=== PATIENT | male | born 1940 | race Caucasian/White ===

== ENCOUNTER 2018-12-02 14:06 | Inpatient (IN) | payer OTHER ==
[2018-12-02] MEDS ORDERED: ENALAPRIL MALEATE 20 MG TAB PO ONE (14:20)
[2018-12-02] MEDS ORDERED: ASPIRIN 81 MG CHEWABLE TAB PO ONE (14:20)
[2018-12-02] MEDS ORDERED: NS 1,000 ML IV ONE (14:20)
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
--- NOTE | 2018-12-02 15:31 | CPEKG ---
Test Reason : OPEN Blood Pressure : / mmHG Vent. Rate : 075 BPM Atrial Rate : 075 BPM P-R Int : 151 ms QRS Dur : 086 ms QT Int : 395 ms P-R-T Axes : 047 -32 036 degrees QTc Int : 442 ms Sinus rhythm Left ventricular hypertrophy Inferior infarct, old Confirmed by Israel Tan ([id number]) on 12/02/2018 3:31:19 PM Referred By: ISRAEL TAN Confirmed By:Israel Tan
[2018-12-02 15:46] LABS: PLATELET COUNT 237 10^3/uL (150-400)
[2018-12-02] MEDS ORDERED: OLANZapine 5 MG TAB PO ONE (21:23)
[2018-12-02] MEDS ORDERED: OLANZapine 10 MG/2 ML VIAL ONE (21:45)
[2018-12-02] MEDS ORDERED: OLANZapine 10 MG/2 ML VIAL IM ONE (21:50)
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
--- NOTE | 2018-12-02 22:50 | ASMTTCLDSP ---
T[facility] Discharge Disposition Disposition: Answers: Admit Discharge Concerns/Recommendations: Notes: In consultation with [facility] ED physician, Malathi Hartley MD and [facility] on-call psychiatrist, Dustin Terrazas MD, both concurred that patient appears to meet 27-65 criteria requiring psychiatric hospitalization as the patient appears to be gravely disabled due to a mental illness condition. The patient was given the [facility] prohibited belongings list while in the ED. Was patient given the Answers: Yes Inpatient Behavioral Health Prohibited Belongings List while in the ED? For inpatient Dustin Terrazas MD admission, the following psychiatrist agreed to accept patient for admission to [facility]): Type of Hold: Answers: M1/72-hour Hold Hold initiated by: Answers: ED Physician Date Signed: 12/02/2018 10:50 PM Electronically Signed By:Yoon Cota
[2018-12-03] MEDS ORDERED: MAGNESIUM HYDROXIDE 30 ML UDCUP PO PRN (00:47)
[2018-12-03] MEDS ORDERED: MAG HYDROX/AL HYDROX/SIMETH 30 ML UDCUP PO PRN (00:47)
[2018-12-03] MEDS ORDERED: OLANZapine 5 MG TAB PO PRN (00:48)
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
--- NOTE | 2018-12-03 13:25 | ASMTCMCOM ---
JOSE Note JOSE Note Notes: Pt's sister Lety Salgado called 2x and left messages with concern for her brother's well being. No SARAH on file. CM advised [facility] unit to inform the pt. of his sister's concerns. Date Signed: 12/03/2018 01:24 PM Electronically Signed By:Radha Rios LCSW
--- NOTE | 2018-12-03 13:31 | PDMN ---
Medical Necessity Medical necessity: Pt meets IP criteria per [facility] Behavioral Health; est los >2 mn for adjustment disorder w/mixed disturbance of emotions & conduct ; pt on M1 hold due to being gravely disabled; admit for further monitoring, safety, crisis stabilization & med management; per H&P & order 12/03/18
[2018-12-03] MEDS ORDERED: ENALAPRIL MALEATE 20 MG TAB PO ONE (14:20)
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
[2018-12-03] MEDS: ATORVASTATIN CALCIUM 40 MG TAB PO SCH (20:37)
--- NOTE | 2018-12-04 06:25 | SOAPPROG ---
SOAP Progress Note Assessment/Plan: Assessment: Adjustment Disorder. Improvement noted. (see subjective/objective note). Patient could benefit from continued inpatient hospitalization for crisis stabilization, safety, and medication evaluation. Consider discharge tomorrow. Plan: 1. Medications: no changes at this time 2. Review with patient informed consent and recommendations for psychotropic medication treatment listed below 3. Labs: no additional labs at this time 4. Therapy: continue milieu and group therapy 5. Further investigation including gathering information from patients relatives and review of past case records to inform treatment plan. 6. Safety/Wellness plan and follow-up outpatient appointments to be established prior to discharge. Next steps are for patient to meet with health care administrator to plan a safe discharge plan and establish outpatient services for ongoing treatment. 7. Confer with inpatient treatment team regarding treatment plan. 8. Psychosocial stressors addressed through assistant case manager. 9. Legal status: M1 10. Consider discharge on if patient is in stable condition, safe, and has a safe discharge plan. 11. Substance abuse interventions: Nicotine PSYCHOTROPIC MEDICATION TREATMENT INFORMED CONSENT and RECOMMENDATIONS: Review nature of condition, diagnosis, and prognosis. Review nature and purpose of psychotropic medication treatment. Review type of psychotropic medications being ordered. Review risk and benefits of psychotropic medication treatment. Review probable length of time patient will need to take medications. Review risk and benefits of not undergoing psychotropic medication treatment. Review alternative treatments to psychotropic medications. Review psychotropic medications contraindications, drug-drug interactions, side effects, and importance of reporting any side effects to a psychiatric provider or nurse during inpatient hospitalization, and upon discharge to patients psychiatric outpatient provider, primary care provider, or other health career development manager. Review importance of asking a nurse, psychiatric provider, or primary care provider any questions or problems concerning the psychotropic medications. Verify patient understands the information that has been provided, and understands, accepts, and agrees to psychotropic medications. Review patients safety plan and importance of patient to report to staff while hospitalized if patient is ever a danger to self/others, or unable to care for self, and upon discharge, the importance for patient to contact [facility] or [facility], or go to the nearest emergency room, if patient is ever a danger to self/others, or unable to care for self. Recommend that upon discharge patient establish medication management treatment with a psychiatric provider, establishes routine therapy appointments, and follow-up with primary care provider. Verify patient understands and agrees to these recommendations. 12/04/18 06:24 Subjective: Following up with patient for evaluation of mood and safety. Patient reports, "Doing well, probably got more sleep in the last two days than I have all last week." Patient expresses the following psychiatric symptoms none. Patient describes getting 6 hours of sleep. Patient reports plan to contact his business continuity strategy director, and rent a car to travel back to his home in [place], [place]. Objective: Vital Signs Temp Pulse Resp BP Pulse Ox 36.6 C 65 16 102/54 L 93 12/03/18 06:38 12/03/18 06:38 12/03/18 06:38 12/03/18 06:38 12/03/18 06:38 NURSING REPORT: Consulted with nursing for update on patients progress in treatment. Nurses report patient is engaged in treatment, is attending groups, slept 6 hours, expresses the following psychiatric symptoms: none, exhibits the following psychiatric symptoms: none, is eating all meals, and denies SI/HI, denies A/V hallucinations, and denies delusions. MSE: The patient presents casually dressed and with good hygiene, and looks stated age. Patient is sitting, posture is upright, and position is relaxed. Patient appears awake, alert, and responds appropriately and reasonably during interview. Patient is engaged, relates well to interviewer, and emotional facial expression is appropriate to situation and changes appropriately with topic. Patient is cooperative, makes comfortable eye contact, and movements are voluntary, deliberate, coordinated, and smooth and even with no inappropriate movements. Patient makes laryngeal sounds effortlessly and shares conversation appropriately; pace of conversation is appropriate, and stream of talking is fluent; articulation is clear and understandable; word choice is effortless and appropriate for education level; completes sentences, occasionally pausing to think; rate and volume are appropriate for interview and setting. Patient reports mood as euthymic. Patients affect is stable with full variable range, congruent with mood, and appropriate to speech and circumstances. Patient has linear and logical thinking, with no loose associations, tangential thought, thought blocking, concrete thinking, or any other signs of formal thought disorder. Patient denies suicidal and homicidal ideation, and denies hallucinations and delusions. Patient appears to be a reliable historian with sound judgement and good insight into current condition. Patient has no apparent dysfunction in recent or remote memory noted , and no evidence of gross cognitive dysfunction noted at any point during the interview. SUBSTANCE ABUSE BRIEF INTERVENTION: Brief intervention regarding the risks of nicotine abuse is provided to patient with goal to reduce the risk of harm that could result from the continued use of nicotine, with the general aim to investigate the problem, raise awareness of problem, develop a solution with the patient, recommend a specific change or activity, and motivate the patient toward change. Assess substance abuse behavior and give supportive advice about harm reduction, recommend a reduction in hazardous/at-risk consumption patterns, and facilitate referrals for additional specialized treatment with nonfarm animal caretaker. Intermediate goal is for the patient to quit and continue outpatient treatment. Intervention focus on intermediate goals to allow for more immediate success in the treatment process to keep the patient motivated. Review following with patient: Nicotine dependence: lung cancer, other cancers, heart and circulatory system problems, diabetes, eye problems, infertility and impotence, more prone to respiratory infections, weakened senses, teeth and gum disease, premature aging, second hand smoke. Withdrawal symptoms include strong cravings, anxiety, irritability, restlessness, difficulty concentrating, depressed mood, frustration, anger, increased hunger, insomnia, and constipation or diarrhea. OUTPATIENT SUBSTANCE ABUSE TREATMENT: Patient referred to outpatient provider and treatment for continued treatment related to substance abuse. - Time Spent With Patient Time Spent With Patient: 15 minutes, met with patient individually. - Pending Discharge Pending Discharge Within 24 Hours: No Pending Discharge Within 48 Hours: No ICD10 Worksheet Patient Problems: Problems Problem Status Onset Adjustment disorder with mixed disturbance of emotions and conduct Acute Nicotine dependence Acute
[2018-12-04] MEDS: ENALAPRIL MALEATE 5 MG TAB PO SCH (08:28)
[2018-12-04] MEDS: ASPIRIN EC 325 MG TAB PO SCH (08:28)
[2018-12-04] MEDS ORDERED: ATORVASTATIN CALCIUM 40 MG TAB PO SCH (09:00)
[2018-12-04] MEDS: ATORVASTATIN CALCIUM 40 MG TAB PO SCH (19:56)
--- NOTE | 2018-12-05 06:50 | SOAPPROG ---
SOAP Progress Note Assessment/Plan: Assessment: Adjustment Disorder. Improvement noted. (see subjective/objective note). Patient could benefit from continued inpatient hospitalization for crisis stabilization, safety, and medication evaluation. Consider discharge when patient has safe discharge plan in place. Patients current support system has inability to manage functional impairment at lower level of care. Establish support with safe discharge plan prior to patient discharging. Plan: 1. Medications: no changes at this time 2. Review with patient informed consent and recommendations for psychotropic medication treatment listed below 3. Labs: no additional labs at this time 4. Therapy: continue milieu and group therapy 5. Further investigation including gathering information from patients relatives and review of past case records to inform treatment plan. 6. Safety/Wellness plan and follow-up outpatient appointments to be established prior to discharge. Next steps are for patient to meet with acute care assistant to plan a safe discharge plan and establish outpatient services for ongoing treatment. 7. Confer with inpatient treatment team regarding treatment plan. 8. Psychosocial stressors addressed through pillowcase cleaner. 9. Legal status: M1. Patient agrees to voluntary hospitalization. 10. Consider discharge when patient is in stable condition, safe, and has a safe discharge plan. 11. Substance abuse interventions: Nicotine PSYCHOTROPIC MEDICATION TREATMENT INFORMED CONSENT and RECOMMENDATIONS: Review nature of condition, diagnosis, and prognosis. Review nature and purpose of psychotropic medication treatment. Review type of psychotropic medications being ordered. Review risk and benefits of psychotropic medication treatment. Review probable length of time patient will need to take medications. Review risk and benefits of not undergoing psychotropic medication treatment. Review alternative treatments to psychotropic medications. Review psychotropic medications contraindications, drug-drug interactions, side effects, and importance of reporting any side effects to a psychiatric provider or nurse during inpatient hospitalization, and upon discharge to patients psychiatric outpatient provider, primary care provider, or other health urgent care. Review importance of asking a nurse, psychiatric provider, or primary care provider any questions or problems concerning the psychotropic medications. Verify patient understands the information that has been provided, and understands, accepts, and agrees to psychotropic medications. Review patients safety plan and importance of patient to report to staff while hospitalized if patient is ever a danger to self/others, or unable to care for self, and upon discharge, the importance for patient to contact [facility] or [facility], or go to the nearest emergency room, if patient is ever a danger to self/others, or unable to care for self. Recommend that upon discharge patient establish medication management treatment with a psychiatric provider, establishes routine therapy appointments, and follow-up with primary care provider. Verify patient understands and agrees to these recommendations. 12/05/18 06:50 Subjective: Following up with patient for evaluation of mood and safety. Patient reports, "Doing okay, just concerned about my safety when I leave here. My plan is to return home, but first I would like to pick out hand my belongings that are in several places. I don't think I could survive at the homeless group home." Patient expresses the following psychiatric symptoms none. Patient describes getting 6 hours of sleep. Patient reports plan to rent a car to travel back to his home in [place], [place]. Patient agrees for this INCLUSION TEACHER to contact his sister, Lety, to discuss patients discharge plan and to get Lety's input as to whether patients discharge plan is safe. Patient agrees to sign SARAH for this INCLUSION TEACHER to contact his sister. Objective: Vital Signs Temp Pulse Resp BP Pulse Ox 36.9 C 76 16 155/75 H 92 12/04/18 06:00 12/04/18 06:00 12/04/18 06:00 12/04/18 06:00 12/04/18 06:00 NURSING REPORT: Consulted with nursing for update on patients progress in treatment. Nurses report patient is engaged in treatment, is attending groups, slept 6 hours, expresses the following psychiatric symptoms: moderate anxiety, exhibits the following psychiatric symptoms: moderate anxiety, patient appears to be irritable at times; is eating all meals, and denies SI/HI, denies A/V hallucinations, and denies delusions. MSE: The patient presents casually dressed and with good hygiene, and looks stated age. Patient is sitting, posture is upright, and position is relaxed. Patient appears awake, alert, and responds appropriately and reasonably during interview. Patient is engaged, relates well to interviewer, and emotional facial expression is appropriate to situation and changes appropriately with topic. Patient is cooperative, makes comfortable eye contact, and movements are voluntary, deliberate, coordinated, and smooth and even with no inappropriate movements. Patient makes laryngeal sounds effortlessly and shares conversation appropriately; pace of conversation is appropriate, and stream of talking is fluent; articulation is clear and understandable; word choice is effortless and appropriate for education level; completes sentences, occasionally pausing to think; rate and volume are appropriate for interview and setting. Patient reports mood as euthymic. Patients affect is stable with full variable range, congruent with mood, and appropriate to speech and circumstances. Patient has linear and logical thinking, with no loose associations, tangential thought, thought blocking, concrete thinking, or any other signs of formal thought disorder. Patient denies suicidal and homicidal ideation, and denies hallucinations and delusions. Patient appears to be a reliable historian with sound judgement and good insight into current condition. Patient has no apparent dysfunction in recent or remote memory noted , and no evidence of gross cognitive dysfunction noted at any point during the interview. SUBSTANCE ABUSE BRIEF INTERVENTION: Brief intervention regarding the risks of nicotine abuse is provided to patient with goal to reduce the risk of harm that could result from the continued use of nicotine, with the general aim to investigate the problem, raise awareness of problem, develop a solution with the patient, recommend a specific change or activity, and motivate the patient toward change. Assess substance abuse behavior and give supportive advice about harm reduction, recommend a reduction in hazardous/at-risk consumption patterns, and facilitate referrals for additional specialized treatment with director critical care. Intermediate goal is for the patient to quit and continue outpatient treatment. Intervention focus on intermediate goals to allow for more immediate success in the treatment process to keep the patient motivated. Review following with patient: Nicotine dependence: lung cancer, other cancers, heart and circulatory system problems, diabetes, eye problems, infertility and impotence, more prone to respiratory infections, weakened senses, teeth and gum disease, premature aging, second hand smoke. Withdrawal symptoms include strong cravings, anxiety, irritability, restlessness, difficulty concentrating, depressed mood, frustration, anger, increased hunger, insomnia, and constipation or diarrhea. OUTPATIENT SUBSTANCE ABUSE TREATMENT: Patient referred to outpatient provider and treatment for continued treatment related to substance abuse. - Time Spent With Patient Time Spent With Patient: 15 minutes, met with patient individually. - Pending Discharge Pending Discharge Within 24 Hours: No Pending Discharge Within 48 Hours: No ICD10 Worksheet Patient Problems: Problems Problem Status Onset Adjustment disorder with mixed disturbance of emotions and conduct Acute Nicotine dependence Acute
[2018-12-05] MEDS: ENALAPRIL MALEATE 5 MG TAB PO SCH (08:43)
[2018-12-05] MEDS: ASPIRIN EC 325 MG TAB PO SCH (08:43)
--- NOTE | 2018-12-05 12:05 | ASMTCMCOM ---
CM Note CM Note Notes: CC checked in with ct. who was pleasant and cooperative. Ct. plans to return to [place] upon discharge. He plans to rent a car and drive it back home. Ct. reported that he would have funds deposited to his account next . 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 Discussed follow up [facility] but ct. was not sure he is interested in that. Date Signed: 12/05/2018 12:04 PM Electronically Signed By:Madelyn Parish
--- NOTE | 2018-12-05 18:49 | ASMTCMCOM ---
CM Note CM Note Notes: The information recorded in this note occurred on 12/04/18. 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 Date Signed: 12/05/2018 06:49 PM Electronically Signed By:Yoon Cota
[2018-12-05] MEDS: ATORVASTATIN CALCIUM 40 MG TAB PO SCH (20:36)
--- NOTE | 2018-12-06 06:13 | SOAPPROG ---
SOAP Progress Note Assessment/Plan: Assessment: Adjustment Disorder. Improvement noted. (see subjective/objective note). Patient could benefit from continued inpatient hospitalization for crisis stabilization, safety, and medication evaluation. Consider discharge when patient has safe discharge plan in place. Patients current support system has inability to manage functional impairment at lower level of care. Establish support with safe discharge plan prior to patient discharging. Plan: 1. Medications: no changes at this time 2. Review with patient informed consent and recommendations for psychotropic medication treatment listed below 3. Labs: no additional labs at this time 4. Therapy: continue milieu and group therapy 5. Further investigation including gathering information from patients relatives and review of past case records to inform treatment plan. 6. Safety/Wellness plan and follow-up outpatient appointments to be established prior to discharge. Next steps are for patient to meet with medicare biller to plan a safe discharge plan and establish outpatient services for ongoing treatment. 7. Confer with inpatient treatment team regarding treatment plan. 8. Psychosocial stressors addressed through case fitter. 9. Legal status: M1. Patient agrees to voluntary hospitalization. 10. Consider discharge when patient is in stable condition, safe, and has a safe discharge plan. 11. Substance abuse interventions: Nicotine PSYCHOTROPIC MEDICATION TREATMENT INFORMED CONSENT and RECOMMENDATIONS: Review nature of condition, diagnosis, and prognosis. Review nature and purpose of psychotropic medication treatment. Review type of psychotropic medications being ordered. Review risk and benefits of psychotropic medication treatment. Review probable length of time patient will need to take medications. Review risk and benefits of not undergoing psychotropic medication treatment. Review alternative treatments to psychotropic medications. Review psychotropic medications contraindications, drug-drug interactions, side effects, and importance of reporting any side effects to a psychiatric provider or nurse during inpatient hospitalization, and upon discharge to patients psychiatric outpatient provider, primary care provider, or other health wild animal caretaker. Review importance of asking a nurse, psychiatric provider, or primary care provider any questions or problems concerning the psychotropic medications. Verify patient understands the information that has been provided, and understands, accepts, and agrees to psychotropic medications. Review patients safety plan and importance of patient to report to staff while hospitalized if patient is ever a danger to self/others, or unable to care for self, and upon discharge, the importance for patient to contact [facility] or 1, or go to the nearest emergency room, if patient is ever a danger to self/others, or unable to care for self. Recommend that upon discharge patient establish medication management treatment with a psychiatric provider, establishes routine therapy appointments, and follow-up with primary care provider. Verify patient understands and agrees to these recommendations. 12/06/18 06:12 Subjective: Following up with patient for evaluation of mood and safety. Patient reports, "I am doing fine. I need to get my belongings back from the homeless skilled nursing. My belongings were left in locker #[id number]. This is [employer] locker." Patient expresses the following psychiatric symptoms none. Patient describes getting 6 hours of sleep. Patient reports plan to rent a car to travel back to his home in [place], [place]. Objective: Vital Signs Temp Pulse Resp BP Pulse Ox 37.5 C 67 16 167/72 H 95 12/05/18 06:00 12/05/18 06:00 12/05/18 06:00 12/05/18 08:43 12/05/18 06:00 NURSING REPORT: Consulted with nursing for update on patients progress in treatment. Nurses report patient is engaged in treatment, is attending groups, slept 6 hours, expresses the following psychiatric symptoms: moderate anxiety, exhibits the following psychiatric symptoms: moderate anxiety; is eating all meals, and denies SI/HI, denies A/V hallucinations, and denies delusions. MSE: The patient presents casually dressed and with good hygiene, and looks stated age. Patient is sitting, posture is upright, and position is relaxed. Patient appears awake, alert, and responds appropriately and reasonably during interview. Patient is engaged, relates well to interviewer, and emotional facial expression is appropriate to situation and changes appropriately with topic. Patient is cooperative, makes comfortable eye contact, and movements are voluntary, deliberate, coordinated, and smooth and even with no inappropriate movements. Patient makes laryngeal sounds effortlessly and shares conversation appropriately; pace of conversation is appropriate, and stream of talking is fluent; articulation is clear and understandable; word choice is effortless and appropriate for education level; completes sentences, occasionally pausing to think; rate and volume are appropriate for interview and setting. Patient reports mood as euthymic. Patients affect is stable with full variable range, congruent with mood, and appropriate to speech and circumstances. Patient has linear and logical thinking, with no loose associations, tangential thought, thought blocking, concrete thinking, or any other signs of formal thought disorder. Patient denies suicidal and homicidal ideation, and denies hallucinations and delusions. Patient appears to be a reliable historian with sound judgement and good insight into current condition. Patient has no apparent dysfunction in recent or remote memory noted , and no evidence of gross cognitive dysfunction noted at any point during the interview. SUBSTANCE ABUSE BRIEF INTERVENTION: Brief intervention regarding the risks of nicotine abuse is provided to patient with goal to reduce the risk of harm that could result from the continued use of nicotine, with the general aim to investigate the problem, raise awareness of problem, develop a solution with the patient, recommend a specific change or activity, and motivate the patient toward change. Assess substance abuse behavior and give supportive advice about harm reduction, recommend a reduction in hazardous/at-risk consumption patterns, and facilitate referrals for additional specialized treatment with hospice home care coordinator. Intermediate goal is for the patient to quit and continue outpatient treatment. Intervention focus on intermediate goals to allow for more immediate success in the treatment process to keep the patient motivated. Review following with patient: Nicotine dependence: lung cancer, other cancers, heart and circulatory system problems, diabetes, eye problems, infertility and impotence, more prone to respiratory infections, weakened senses, teeth and gum disease, premature aging, second hand smoke. Withdrawal symptoms include strong cravings, anxiety, irritability, restlessness, difficulty concentrating, depressed mood, frustration, anger, increased hunger, insomnia, and constipation or diarrhea. OUTPATIENT SUBSTANCE ABUSE TREATMENT: Patient referred to outpatient provider and treatment for continued treatment related to substance abuse. - Time Spent With Patient Time Spent With Patient: 15 minutes, met with patient individually. - Pending Discharge Pending Discharge Within 24 Hours: No Pending Discharge Within 48 Hours: No ICD10 Worksheet Patient Problems: Problems Problem Status Onset Adjustment disorder with mixed disturbance of emotions and conduct Acute Nicotine dependence Acute
[2018-12-06] MEDS: ASPIRIN EC 325 MG TAB PO SCH (08:20)
[2018-12-06] MEDS: ENALAPRIL MALEATE 5 MG TAB PO SCH (08:20)
[2018-12-06] MEDS: ACETAMINOPHEN 325 MG TAB PO PRN (09:43)
--- NOTE | 2018-12-06 12:07 | ASMTCMCOM ---
CM Note CM Note Notes: Ct. was pleasant and cheerful when CC checked in with him this morning. However, he later requested that his belongings, that he left at the homeless halfway, be brought to the hospital. When CC explained that he will have to retrive them in person after discharge he became angry. Date Signed: 12/06/2018 12:06 PM Electronically Signed By:Madelyn Parish
--- NOTE | 2018-12-06 12:37 | ASMTCMCOM ---
CM Note CM Note Notes: CC spoke with [facility] Trace Allen [phone]. She is going to drop ct. off her commercial insurance and call with an update. Date Signed: 12/06/2018 12:36 PM Electronically Signed By:Madelyn Parish
[2018-12-06] MEDS: ATORVASTATIN CALCIUM 40 MG TAB PO SCH (20:37)
[2018-12-07] MEDS: ENALAPRIL MALEATE 5 MG TAB PO SCH (08:35)
[2018-12-07] MEDS: ASPIRIN EC 325 MG TAB PO SCH (08:36)
--- NOTE | 2018-12-07 15:44 | ASMTCMCOM ---
CM Note CM Note Notes: Pt. reports his day "been very slow". Pt. reports he while sleeping he was "up about 4 times" adding this is his regular schedule and he regularly sleeps 4-5 hours. Pt. reports getting "more than enough" food, adding he has "gained 5lbs". Pt. reports no issues with his current medications. Pt. reports attending one groups this morning and sleeping through the other groups. Pt. reports giving a [place] suit jacket to a peer pt. Pt. stated he wants to go to christianity tomorrow at the [facility]. CC explained how pt. would have to fully discharge to attend [facility] tomorrow. Pt. stated "that doesn't sit well with me". Pt. reports he gets his pay check on Sunday and is discharging Sunday morning, adding he has already rented a car for Sunday. Pt. stated he could walk to his christianity tomorrow. CC explained he would have to fully discharge, as there are no day passes. Pt. stated he will stay but is not happy and that there will be "legal ramifications". Pt. presents as alert, fairly calm, distracted, fair eye contact, irritated at times, and mostly cooperative. Staff report pt. sleeping 2.5 hours and being medication compliant. CC will provided pt. with a Bible Date Signed: 12/07/2018 03:44 PM Electronically Signed By:Anastasia Espinoza
--- NOTE | 2018-12-07 16:50 | SOAPPROG ---
SOAP Progress Note Assessment/Plan: Assessment: 78 yo presented to ED after c/o bout of lightheadedness outside homeless care home. He received cardiac and neuro w/u in ED which was negative. [facility] vocational evaluator thought patient presented with manic sxs and he was placed on M1. Patient was converted to voluntary status while on 3N despite refusing all medications. Plan: 12/07/18 16:41 1. PMHNP's note states patient is refusing all psych meds. His daughter in [place] says patient has h/o bipolar disorder, but refuses all psych treatment. According to collateral information, he has been arrested multiple times in [place] and [place], but never been placed on COM for involuntary medication and psych treatment. 2. Patient presents as irritable, easily frustrated, hostile at times, confrontational with staff. However, he has not been physically aggressive or made any threats toward staff or peers. He is not currently endorsing any thoughts, plans or intent to harm himself or anyone else. Patient has been inappropriate with female staff asking them to come to his "quarters" and share "cranberry cocktails" but no hypersexual behavior noted. 3. Patient says he wants to remain in hospital until he gets his social security check next week. 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 4. Continues on voluntary status. Patient could leave at any time, he is not deemed to be a DTS/DTO or gravely disabled. Subjective: Patient is upset that he can't leave hospital to go to faith service tomorrow and then return to 3N. He wants a place to stay until his social security check arrives next week. He doesn't understand why he can't go to faith and then come right back to [facility]. Even after staff explain that patient does not have to stay in hospital if he doesn't want to sine he is voluntary, he insists he wants to return to hospital until he gets his social security check and can pay for bus ticket back home. He doesn't want to have to stay in homeless care home. 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 However, patient refuses all psych meds. He doesn't have increase in goal-directed activity, reckless or impulsive behavior (he can attend group and participate in milieu therapy), elevated/elated mood, pressured speech. And he denies any SI/HI as well as all psychotic sxs. He does not have paranoid delusions, AH/VH. MD doesn't believe patient is DTS/DTO or gravely disabled. 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
[2018-12-07] MEDS: ATORVASTATIN CALCIUM 40 MG TAB PO SCH (21:53)
[2018-12-07] MEDS: NICOTINE POLACRILEX 2 MG GUM B PRN (23:37)
[2018-12-08] MEDS: ACETAMINOPHEN 325 MG TAB PO PRN (07:24)
[2018-12-08] MEDS: ASPIRIN EC 325 MG TAB PO SCH (07:24)
[2018-12-08] MEDS: ENALAPRIL MALEATE 5 MG TAB PO SCH (07:24)
[2018-12-08] MEDS: NICOTINE POLACRILEX 2 MG GUM B PRN ×3 (08:36→17:56)
--- NOTE | 2018-12-08 15:20 | ASMTBHDC ---
Notes Note: Notes: Pt. reports feeling "good". Pt. stated he slept "same as usual". Pt. reports getting "too much" to eat, adding he has "gained 5 lbs". Pt. reports no issues with his current medications. Pt. reports attending "all" groups. Pt. stated he would like "transport on Sunday" to his rental car location ([address]), adding he wants to be there when they open at 7:30am. Pt. asked if he could leave his property at the hospital, while he goes and gets his rental car, adding he would return to milk pickup driver his items. Pt. stated he then plans to go to get his other property at the senior care. Pt. stated he will pick the items up himself, but proceeded to give CC the locker number and locker cosmetic surgeon's phone number ([employer] [phone]). Pt. stated he gets his check at midnight on Sunday. Pt. denied SI, HI, AVH and paranoia. Pt. presents as alert, well dressed, calm, fair eye contact (was reading while meeting with CC), and mostly cooperative. Staff report pt. sleeping 4 hours and not having any psychiatric medications to take. CC to secure transportation to pt's rental car location for Sunday. Date Signed: 12/08/2018 03:19 PM Electronically Signed By:Anastasia Espinoza
--- NOTE | 2018-12-08 17:52 | SOAPPROG ---
SOAP Progress Note Assessment/Plan: Assessment: 78 yo presented to ED after c/o bout of lightheadedness outside homeless nursing home. He received cardiac and neuro w/u in ED which was negative. [facility] industrial servicer thought patient presented with manic sxs and he was placed on M1. Patient was converted to voluntary status while on 3N despite refusing all medications. Plan: 12/07/18 16:41 1. PMHNP's note states patient is refusing all psych meds. His daughter in [place] says patient has h/o bipolar disorder, but refuses all psych treatment. According to collateral information, he has been arrested multiple times in [place] and [place], but never been placed on COM for involuntary medication and psych treatment. 2. Patient presents as irritable, easily frustrated, hostile at times, confrontational with staff. However, he has not been physically aggressive or made any threats toward staff or peers. He is not currently endorsing any thoughts, plans or intent to harm himself or anyone else. Patient has been inappropriate with female staff asking them to come to his "quarters" and share "cranberry cocktails" but no hypersexual behavior noted. 3. Patient says he wants to remain in hospital until he gets his social security check next week. 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 4. Continues on voluntary status. Patient could leave at any time, he is not deemed to be a DTS/DTO or gravely disabled. 12/08/18 17:48 1. Patient says he was in "legal dispute" over his "nondenominational rights" about going to [facility] this AM. But he told MD, "that's all over now" and says he isn' t "concerned about it anymore." He said he changed his mind this AM and decided he wanted to stay in hospital so he could "wait to get my check" on Sunday. 2. Patient slept 4 hours last night, but staff report patient took several 45- 60 min naps during day yesterday. 3. Patient is still voluntary and refuses to take any psychotropic medications. 4. Patient's new plan is to rent a car when he discharges and drive to [place] where he was living before coming to [place]. Subjective: Patient is wearing a sweater and a curry blazer sitting on couch in front of the TV. He is laughing and talking to peers and staff. He presents cheerful and eager to please. He says he changed his mind about going to [facility] once he was told he would need to be discharged in order to leave unit. He told MD that he doesn't really care about going to [facility] anyway, he would prefer to stay in hospital and "wait to get my check" which he says comes late on Sunday. He says he will leave on Sunday so he can get his money, collect his belongings from the homeless nursing home and rent a car to drive to [place]. Patient does not have racing thoughts, decreased need for sleep, increased goal-directed activity , pressured speech, elevated or elated mood, reckless or impulsive behavior. He denies any SI/HI. 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 He denies any AH/VH, paranoid delusions, IOR and bizarre thoughts. 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
[2018-12-08] MEDS: ATORVASTATIN CALCIUM 40 MG TAB PO SCH (20:48)
[2018-12-09] MEDS: NICOTINE POLACRILEX 2 MG GUM B PRN ×2 (03:12→05:59)
--- NOTE | 2018-12-09 06:01 | SOAPPROG ---
SOAP Progress Note Assessment/Plan: Assessment: Adjustment Disorder. Improvement noted. (see subjective/objective note). Patient could benefit from continued inpatient hospitalization for crisis stabilization, safety, and medication evaluation. Consider discharge when patient has safe discharge plan in place. Patients current support system has inability to manage functional impairment at lower level of care. Establish support with safe discharge plan prior to patient discharging. Consider discharge Sunday. Plan: 1. Medications: no changes at this time 2. Review with patient informed consent and recommendations for psychotropic medication treatment listed below 3. Labs: no additional labs at this time 4. Therapy: continue milieu and group therapy 5. Further investigation including gathering information from patients relatives and review of past case records to inform treatment plan. 6. Safety/Wellness plan and follow-up outpatient appointments to be established prior to discharge. Next steps are for patient to meet with daycare director to plan a safe discharge plan and establish outpatient services for ongoing treatment. 7. Confer with inpatient treatment team regarding treatment plan. 8. Psychosocial stressors addressed through case management social worker. 9. Legal status: M1. Patient agrees to voluntary hospitalization. 10. Consider discharge Sunday if patient is in stable condition, safe, and has a safe discharge plan. 11. Substance abuse interventions: Nicotine PSYCHOTROPIC MEDICATION TREATMENT INFORMED CONSENT and RECOMMENDATIONS: Review nature of condition, diagnosis, and prognosis. Review nature and purpose of psychotropic medication treatment. Review type of psychotropic medications being ordered. Review risk and benefits of psychotropic medication treatment. Review probable length of time patient will need to take medications. Review risk and benefits of not undergoing psychotropic medication treatment. Review alternative treatments to psychotropic medications. Review psychotropic medications contraindications, drug-drug interactions, side effects, and importance of reporting any side effects to a psychiatric provider or nurse during inpatient hospitalization, and upon discharge to patients psychiatric outpatient provider, primary care provider, or other health pet caregiver. Review importance of asking a nurse, psychiatric provider, or primary care provider any questions or problems concerning the psychotropic medications. Verify patient understands the information that has been provided, and understands, accepts, and agrees to psychotropic medications. Review patients safety plan and importance of patient to report to staff while hospitalized if patient is ever a danger to self/others, or unable to care for self, and upon discharge, the importance for patient to contact [facility] or [facility], or go to the nearest emergency room, if patient is ever a danger to self/others, or unable to care for self. Recommend that upon discharge patient establish medication management treatment with a psychiatric provider, establishes routine therapy appointments, and follow-up with primary care provider. Verify patient understands and agrees to these recommendations. 12/09/18 06:00 Subjective: Following up with patient for evaluation of mood and safety. Patient reports, "Doing well, had a good weekend. Anuj had a good group session yesterday. Still plan on getting rental car on Sunday, picking up my belongings and going back home to [place]." Patient expresses the following psychiatric symptoms none. Patient describes getting 6 hours of sleep. Patient reports plan to rent a car to travel back to his home in [place], [place]. Objective: Vital Signs Temp Pulse Resp BP Pulse Ox 36.7 C 76 14 103/64 96 12/08/18 06:00 12/08/18 06:00 12/08/18 06:00 12/08/18 06:00 12/08/18 06:00 NURSING REPORT: Consulted with nursing for update on patients progress in treatment. Nurses report patient is engaged in treatment, is attending groups, slept 6 hours, expresses the following psychiatric symptoms: moderate anxiety, exhibits the following psychiatric symptoms: moderate anxiety, patient appears to be irritable at times; is eating all meals, and denies SI/HI, denies A/V hallucinations, and denies delusions. MSE: The patient presents casually dressed and with good hygiene, and looks stated age. Patient is sitting, posture is upright, and position is relaxed. Patient appears awake, alert, and responds appropriately and reasonably during interview. Patient is engaged, relates well to interviewer, and emotional facial expression is appropriate to situation and changes appropriately with topic. Patient is cooperative, makes comfortable eye contact, and movements are voluntary, deliberate, coordinated, and smooth and even with no inappropriate movements. Patient makes laryngeal sounds effortlessly and shares conversation appropriately; pace of conversation is appropriate, and stream of talking is fluent; articulation is clear and understandable; word choice is effortless and appropriate for education level; completes sentences, occasionally pausing to think; rate and volume are appropriate for interview and setting. Patient reports mood as euthymic. Patients affect is stable with full variable range, congruent with mood, and appropriate to speech and circumstances. Patient has linear and logical thinking, with no loose associations, tangential thought, thought blocking, concrete thinking, or any other signs of formal thought disorder. Patient denies suicidal and homicidal ideation, and denies hallucinations and delusions. Patient appears to be a reliable historian with sound judgement and good insight into current condition. Patient has no apparent dysfunction in recent or remote memory noted , and no evidence of gross cognitive dysfunction noted at any point during the interview. SUBSTANCE ABUSE BRIEF INTERVENTION: Brief intervention regarding the risks of nicotine abuse is provided to patient with goal to reduce the risk of harm that could result from the continued use of nicotine, with the general aim to investigate the problem, raise awareness of problem, develop a solution with the patient, recommend a specific change or activity, and motivate the patient toward change. Assess substance abuse behavior and give supportive advice about harm reduction, recommend a reduction in hazardous/at-risk consumption patterns, and facilitate referrals for additional specialized treatment with post anesthesia care unit nurse. Intermediate goal is for the patient to quit and continue outpatient treatment. Intervention focus on intermediate goals to allow for more immediate success in the treatment process to keep the patient motivated. Review following with patient: Nicotine dependence: lung cancer, other cancers, heart and circulatory system problems, diabetes, eye problems, infertility and impotence, more prone to respiratory infections, weakened senses, teeth and gum disease, premature aging, second hand smoke. Withdrawal symptoms include strong cravings, anxiety, irritability, restlessness, difficulty concentrating, depressed mood, frustration, anger, increased hunger, insomnia, and constipation or diarrhea. OUTPATIENT SUBSTANCE ABUSE TREATMENT: Patient referred to outpatient provider and treatment for continued treatment related to substance abuse. - Time Spent With Patient Time Spent With Patient: 15 minutes, met with patient individually. 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
[2018-12-09] MEDS: ASPIRIN EC 325 MG TAB PO SCH (08:19)
[2018-12-09] MEDS: ENALAPRIL MALEATE 5 MG TAB PO SCH (08:19)
--- NOTE | 2018-12-09 13:38 | ASMTCMCOM ---
CM Note CM Note Notes: Client remains on the unit interacting with peers and staff. Client presents as alert, grandiose and tangential affect. Client will discharge on Sunday morning to "bus ticket and/or to rent a car." Client denies any help with follow up mental health needs. Date Signed: 12/09/2018 01:37 PM Electronically Signed By:Óscar Londono
--- NOTE | 2018-12-09 13:42 | ASMTBHDC ---
Notes Note: Notes: Client refused to allow CC to coordinate any mental health follow up; provided the walk-in times and dates. Follow up with: [facility] [address], [place] [id number] Walk-in times & dates Follow-up: This is for the initial 30 minute appt to do paperwork and Ct should bring ID, insurance card, etc. [place] office: [address] [place] [address] Mon, Wed, and Fri 8:30am-2pm. [place] office: [address] [facility], [place] [address] Mon. and Wed., 9 am-2 pm [place] office: [address] [facility] [address] [facility], 2nd floor (adults), [place] [address] Mon-Fri., 9 am-2 pm Date Signed: 12/09/2018 01:40 PM Electronically Signed By:Óscar Londono
[2018-12-09] MEDS: ATORVASTATIN CALCIUM 40 MG TAB PO SCH (20:55)
--- NOTE | 2018-12-10 05:58 | SOAPPROG ---
SOAP Progress Note Assessment/Plan: Assessment: Adjustment Disorder. Improvement noted. (see subjective/objective note). Patient could benefit from continued inpatient hospitalization for crisis stabilization, safety, and medication evaluation. Consider discharge tomorrow. Plan: 1. Medications: no changes at this time 2. Review with patient informed consent and recommendations for psychotropic medication treatment listed below 3. Labs: no additional labs at this time 4. Therapy: continue milieu and group therapy 5. Further investigation including gathering information from patients relatives and review of past case records to inform treatment plan. 6. Safety/Wellness plan and follow-up outpatient appointments to be established prior to discharge. Next steps are for patient to meet with healthcare facility administrator to plan a safe discharge plan and establish outpatient services for ongoing treatment. 7. Confer with inpatient treatment team regarding treatment plan. 8. Psychosocial stressors addressed through family independence case manager. 9. Legal status: voluntary 10. Consider discharge tomorrow if patient is in stable condition, safe, and has a safe discharge plan. 11. Substance abuse interventions: Nicotine PSYCHOTROPIC MEDICATION TREATMENT INFORMED CONSENT and RECOMMENDATIONS: Review nature of condition, diagnosis, and prognosis. Review nature and purpose of psychotropic medication treatment. Review type of psychotropic medications being ordered. Review risk and benefits of psychotropic medication treatment. Review probable length of time patient will need to take medications. Review risk and benefits of not undergoing psychotropic medication treatment. Review alternative treatments to psychotropic medications. Review psychotropic medications contraindications, drug-drug interactions, side effects, and importance of reporting any side effects to a psychiatric provider or nurse during inpatient hospitalization, and upon discharge to patients psychiatric outpatient provider, primary care provider, or other health nurse wound care. Review importance of asking a nurse, psychiatric provider, or primary care provider any questions or problems concerning the psychotropic medications. Verify patient understands the information that has been provided, and understands, accepts, and agrees to psychotropic medications. Review patients safety plan and importance of patient to report to staff while hospitalized if patient is ever a danger to self/others, or unable to care for self, and upon discharge, the importance for patient to contact [facility] or [facility], or go to the nearest emergency room, if patient is ever a danger to self/others, or unable to care for self. Recommend that upon discharge patient establish medication management treatment with a psychiatric provider, establishes routine therapy appointments, and follow-up with primary care provider. Verify patient understands and agrees to these recommendations. 12/10/18 05:57 Subjective: Following up with patient for evaluation of mood and safety. Patient reports, "Doing well, ready for discharge tomorrow." Patient expresses the following psychiatric symptoms none. Patient describes getting 6 hours of sleep. Patient reports plan to rent a car to travel back to his home in [place], [place] after discharge tomorrow. Objective: Vital Signs Temp Pulse Resp BP Pulse Ox 36.6 C 75 16 138/80 H 97 12/09/18 06:00 12/09/18 06:00 12/09/18 06:00 12/09/18 06:00 12/09/18 06:00 NURSING REPORT: Consulted with nursing for update on patients progress in treatment. Nurses report patient is engaged in treatment, is attending groups, slept 6 hours, expresses the following psychiatric symptoms: moderate anxiety, exhibits the following psychiatric symptoms: moderate anxiety; is eating all meals, and denies SI/HI, denies A/V hallucinations, and denies delusions. MSE: The patient presents casually dressed and with good hygiene, and looks stated age. Patient is sitting, posture is upright, and position is relaxed. Patient appears awake, alert, and responds appropriately and reasonably during interview. Patient is engaged, relates well to interviewer, and emotional facial expression is appropriate to situation and changes appropriately with topic. Patient is cooperative, makes comfortable eye contact, and movements are voluntary, deliberate, coordinated, and smooth and even with no inappropriate movements. Patient makes laryngeal sounds effortlessly and shares conversation appropriately; pace of conversation is appropriate, and stream of talking is fluent; articulation is clear and understandable; word choice is effortless and appropriate for education level; completes sentences, occasionally pausing to think; rate and volume are appropriate for interview and setting. Patient reports mood as euthymic. Patients affect is stable with full variable range, congruent with mood, and appropriate to speech and circumstances. Patient has linear and logical thinking, with no loose associations, tangential thought, thought blocking, concrete thinking, or any other signs of formal thought disorder. Patient denies suicidal and homicidal ideation, and denies hallucinations and delusions. Patient appears to be a reliable historian with sound judgement and good insight into current condition. Patient has no apparent dysfunction in recent or remote memory noted , and no evidence of gross cognitive dysfunction noted at any point during the interview. SUBSTANCE ABUSE BRIEF INTERVENTION: Brief intervention regarding the risks of nicotine abuse is provided to patient with goal to reduce the risk of harm that could result from the continued use of nicotine, with the general aim to investigate the problem, raise awareness of problem, develop a solution with the patient, recommend a specific change or activity, and motivate the patient toward change. Assess substance abuse behavior and give supportive advice about harm reduction, recommend a reduction in hazardous/at-risk consumption patterns, and facilitate referrals for additional specialized treatment with health care liaison. Intermediate goal is for the patient to quit and continue outpatient treatment. Intervention focus on intermediate goals to allow for more immediate success in the treatment process to keep the patient motivated. Review following with patient: Nicotine dependence: lung cancer, other cancers, heart and circulatory system problems, diabetes, eye problems, infertility and impotence, more prone to respiratory infections, weakened senses, teeth and gum disease, premature aging, second hand smoke. Withdrawal symptoms include strong cravings, anxiety, irritability, restlessness, difficulty concentrating, depressed mood, frustration, anger, increased hunger, insomnia, and constipation or diarrhea. OUTPATIENT SUBSTANCE ABUSE TREATMENT: Patient referred to outpatient provider and treatment for continued treatment related to substance abuse. - Time Spent With Patient Time Spent With Patient: 15 minutes, met with patient individually. - Pending Discharge Pending Discharge Within 24 Hours: Yes Pending Discharge Within 48 Hours: No Pending Discharge Date: 12/11/18 Pending Discharge Time: 11:00 ICD10 Worksheet Patient Problems: Problems Problem Status Onset Adjustment disorder with mixed disturbance of emotions and conduct Acute Nicotine dependence Acute
[2018-12-10] MEDS: ASPIRIN EC 325 MG TAB PO SCH (09:04)
[2018-12-10] MEDS: ENALAPRIL MALEATE 5 MG TAB PO SCH (09:04)
--- NOTE | 2018-12-10 11:19 | ASMTBHDC ---
Notes Note: Notes: The patient participated in clinical treatment team rounds. He was calm, engaged, and appropriate. The patient expressed his gratitude to the [facility] staff for their care during his admission. The patient reviewed his discharge plan with the team. He is anticipated to leave 12/11/18 AM. Date Signed: 12/10/2018 11:19 AM Electronically Signed By:Yoon Cota
[2018-12-10] MEDS: ATORVASTATIN CALCIUM 40 MG TAB PO SCH (19:29)
[2018-12-10] MEDS: NICOTINE POLACRILEX 2 MG GUM B PRN (23:00)
[2018-12-11 06:44] VITALS: BP 193/79
[2018-12-11] MEDS: ASPIRIN EC 325 MG TAB PO SCH (08:10)
[2018-12-11] MEDS: ENALAPRIL MALEATE 5 MG TAB PO SCH (08:10)
--- NOTE | 2018-12-11 09:44 | BDS ---
[f rep st] BEHAVIORAL HEALTH DISCHARGE SUMMARY REASON FOR ADMISSION: From the ED note dated 12/02/2018, the patient reported visiting for a long weekend from [place], presence to the emergency department by EMS and was found outside the homeless nursing home, the patient was outside and started feeling lightheaded. The patient reported feeling extremely anxious. The patient was admitted involuntarily and on an M1 hold due to being gravely disabled. The patient was admitted for safety, crisis stabilization, and medication management. ADMITTING DIAGNOSIS: 1. Adjustment disorder with mixed disturbance of emotions and conduct. 2. Nicotine dependence. ADMISSION PHYSICAL EXAM: Patient was seen on 12/03/2018, for an H and P consultation for medical clearance for inpatient psychiatric hospitalization and treatment. The patient was medically cleared for inpatient psychiatric hospitalization and treatment. For further details, please refer to consultation document dated 12/03/2018. ADMISSION LABS: 1. CBC within normal limits except RDW was elevated at 15.4, BMP was low at 21 , BUN was elevated at 27. 2. Hemoglobin A1c elevated at 6.2. 3. Estimated average glucose was elevated at 131. 4. Liver function within normal limits. 5. POC troponin 1.00. 6. Lipid panel within normal limits except cholesterol risk factor was elevated at 1.6, LDL cholesterol calculated was elevated at 162, LDL risk factor was elevated at 1.6, non-HDL cholesterol was elevated at 186, HDL cholesterol was low at 31, LDL/HDL ratio was elevated at 5.21 and cholesterol/ HDL ratio was elevated at 7.00. 7. Toxicology screen was negative for all substances that were screened and was negative for ethyl alcohol. MAJOR PROCEDURES OR TESTS: None. HOSPITAL COURSE: The most prominent symptoms and behaviors while the patient was here were signs and symptoms of moderate anxiety. Treatment modalities utilized were milieu and group therapy. Patient has improved considerably with no signs of psychiatric symptoms and no psychiatric symptoms expressed. Patient reports he has improved since admission, states to be in stable condition, feels safe to discharge, and he contracts for safety. Patients response to treatment was good. There were no adverse or unexpected results of treatment. The patient was safe throughout stay, active in treatment, engaged in groups, and was appropriate with staff. Patient met with treatment team prior to discharge to assess readiness to discharge and review discharge plan. The treatment team consensus is the patient in stable condition, has a safe discharge plan, and is ready to discharge today. CONDITION AT DISCHARGE: Patient is in stable condition and is no longer a danger to self or others, and is not gravely disabled due to mental illness. Patient is no longer in need of inpatient level of care, and can be safely and effectively treated within the community. The patients level of risk at time of discharge is low. MSE: The patient is casually dressed and with good hygiene , and looks stated age. Patient is sitting, posture is upright, and position is relaxed. Patient appears awake, alert, and responds appropriately and reasonably during interview. Patient is engaged, relates well to interviewer, and emotional facial expression is appropriate to situation and changes appropriately with topic. Patient is cooperative, makes comfortable eye contact , and movements are voluntary, deliberate, coordinated, and smooth and even with no inappropriate movements. Patient makes laryngeal sounds effortlessly and shares conversation appropriately; pace of conversation is appropriate, and stream of talking is fluent; articulation is clear and understandable; word choice is effortless and appropriate for education level; completes sentences, occasionally pausing to think; rate and volume are appropriate for interview and setting. Patient reports mood as euthymic. Patients affect is stable with full variable range, congruent with mood, and appropriate to speech and circumstances. Patient has linear and logical thinking, with no loose associations, tangential thought, thought blocking, concrete thinking, or any other signs of formal thought disorder. Patient denies suicidal and homicidal ideation, and denies hallucinations and delusions. Patient appears to be a reliable historian with sound judgement and good insight into current condition. Patient has no apparent dysfunction in recent or remote memory noted , and no evidence of gross cognitive dysfunction noted at any point during the interview. DISCHARGE DIAGNOSIS: 1. Adjustment disorder with mixed disturbance of emotions. 2. Nicotine dependence. CURRENT MEDICATIONS: After reviewing options, risks, and benefits with the patient, the patient agrees to continue: 1. Enalapril Maleate 20 mg p.o. daily. 2. Nicorette gum 2 mg q.1 hour p.r.n. 3. Aspirin EC 325 mg p.o. daily. 4. Simvastatin 40 mg p.o. at bedtime. The patient requests prescriptions for simvastatin and Enalapril Maleate at time of discharge. Prescriptions for 30 days are provided. The prescriptions and the patient's medications are reviewed with the patient at time of discharge to ensure accuracy and patient understanding. DISPOSITION: Patient left hospital independently and voluntarily. Plans to rent a car at [employer] and travel back to his home in [place], [place]. Patient's sister is aware of the patient's plan to return to his home in [place], [place]. FOLLOWUP: network coordinator reports the appropriate outpatient follow-up services have been established and outpatient appointments have been scheduled. The patient received written instructions with times and dates of outpatient follow-up appointments. The following follow-up recommendations were provided to the patient at discharge: Continue psychotropic medications as prescribed and attend appointments as scheduled. Report any side effects to a psychiatric outpatient provider, a primary care provider, or other health director of primary care. Address any questions or problems concerning the psychotropic medications with a psychiatric outpatient provider, a primary care provider, or other health director of primary care. Contact [place] [facility] or [facility], or go to the nearest emergency room, if you are ever a danger to yourself/others, or unable to care for yourself. As soon as possible, establish a routine medication management treatment with a psychiatric provider, establish routine therapy appointments, and follow-up with a primary care provider. SUBSTANCE ABUSE BRIEF INTERVENTION: Brief intervention regarding the risks of nicotine abuse is provided to patient with goal to reduce the risk of harm that could result from the continued use of nicotine, with the general aim to investigate the problem, raise awareness of problem, develop a solution with the patient, recommend a specific change or activity, and motivate the patient toward change. Assess substance abuse behavior and give supportive advice about harm reduction, recommend a reduction in hazardous/at-risk consumption patterns, and facilitate referrals for additional specialized treatment with skin care instructor. Intermediate goal is for the patient to quit and continue outpatient treatment. Intervention focus on intermediate goals to allow for more immediate success in the treatment process to keep the patient motivated. Review following with patient: Nicotine dependence: lung cancer, other cancers, heart and circulatory system problems, diabetes, eye problems, infertility and impotence, more prone to respiratory infections, weakened senses, teeth and gum disease, premature aging, second hand smoke. Withdrawal symptoms include strong cravings, anxiety, irritability, restlessness, difficulty concentrating, depressed mood, frustration, anger, increased hunger, insomnia, and constipation or diarrhea. OUTPATIENT SUBSTANCE ABUSE TREATMENT: Patient referred to outpatient provider and treatment for continued treatment related to substance abuse. LEGAL COURSE: Patient was admitted on an M1 hold for involuntary inpatient psychiatric hospitalization. The patient was discharged today independently and voluntarily. ATTITUDE AT TIME OF DISCHARGE: The patients attitude was positive at time of discharge, and patient reports looking forward to discharging today. The patient reports he feels safe to discharge, is no longer a danger to himself or others, is in stable condition, and contracts for safety. Patient states he will continue medications as prescribed, and establish medication management treatment with an outpatient provider after discharge. Patient reports he understands the information that has been provided to him, and he understands, accepts, and agrees to psychotropic medications. Patient describes internal protective factors as the coping skills he has learned while hospitalized here, and he plans to continue to practice these coping skills after discharge. LABS AND STUDIES: There were no pending labs or studies at time of discharge. ADVANCE DIRECTIVES: There were no advance directives on file, and patient was full code during this hospitalization. The following psychotropic medication treatment informed consent and recommendations were provided to the patient at time of discharge. Patient reports he understands, accepts, and agrees to the information that has been provided. PSYCHOTROPIC MEDICATION TREATMENT INFORMED CONSENT and RECOMMENDATIONS: Review nature of condition, diagnosis, and prognosis. Review nature and purpose of psychotropic medication treatment. Review type of psychotropic medications being prescribed. Review risk and benefits of psychotropic medication treatment. Review probable length of time will need to take medications. Review risk and benefits of not undergoing psychotropic medication treatment. Review alternative treatments to psychotropic medications. Review psychotropic medications contraindications, side effects, and importance of reporting any side effects to a psychiatric provider, primary care provider, or other health director of primary care. Review importance of asking a psychiatric provider or primary care provider any questions or problems concerning the psychotropic medications. Review safety plan and the importance to contact [place] [facility] or [facility] , or go to the nearest emergency room, if ever a danger to yourself/others, or unable to care for yourself. Recommend upon discharge to establish routine medication management treatment with a psychiatric provider, establish routine therapy appointments, and follow-up with a primary care provider. Verify patient understands, accepts, and agrees to the information that has been provided. /[id number]
== END 2018-12-11 08:30 | disposition home or self-care (01) | DRG 882 ==
LOC: BBEH 23:50
PROVIDERS: ADMIT Psychiatry & Neurology Psychiatry; ATTEND Registered Nurse
DX: F43.25 Adjustment disorder with mixed disturbance of emotions and conduct (principal); F17.200 Nicotine dependence, unspecified, uncomplicated; E78.5 Hyperlipidemia, unspecified; I25.10 Atherosclerotic heart disease of native coronary artery without angina pectoris; I10 Essential (primary) hypertension; Z95.5 Presence of coronary angioplasty implant and graft
CPT/HCPCS: 80305; 84484-ER; G0480